=== PATIENT | female | born 1935 | race American Indian/Alaskan Native ===

== ENCOUNTER 2018-10-29 15:05 | Inpatient (IN) | payer MEDICARE ==
[2018-10-29 16:17] LABS: Basophils # (Auto) 0.1 K/mm3 (0.0-0.1); Basophils % (Auto) 1.1 % (0.0-1.8); Eosinophils # (Auto) 0.3 K/mm3 (0.0-0.4); Eosinophils % (Auto) 3.8 % (0.0-4.3); Hematocrit 40.2 % (30.3-42.9); Lymphocytes # (Auto) 0.6 K/mm3 (1.2-5.4); Lymphocytes % (Auto) 7.8 % (13.4-35.0); Mean Corpuscular HGB Conc 32 % (30-34); Mean Corpuscular Volume 92 fl (79-97); Monocytes # (Auto) 0.7 K/mm3 (0.0-0.8); Monocytes % (Auto) 9.4 % (0.0-7.3); Platelet Count 317 K/mm3 (140-440); Red Blood Count 4.36 M/mm3 (3.65-5.03); Red Cell Distribution Width 17.8 % (13.2-15.2)
[2018-10-29 16:35] LABS: Albumin 3.9 g/dL (3.9-5); Calcium 8.8 mg/dL (8.4-10.2)
[2018-10-29 16:35] LABS: Bacteria,Urine 1+ /HPF (Negative); Bilirubin,Urine NEG (Negative); Blood,Urine NEG (Negative); Color,Urine Yellow (Yellow); Mucus,Urine FEW /HPF; Protein,Urine <15 mg/dL mg/dL (Negative); Urobilinogen,Urine < 2.0 mg/dL (<2.0)
[2018-10-29] MEDS ORDERED: SUBLIMAZE IV ONE ×2 (16:41→20:57)
[2018-10-29] MEDS ORDERED: ZOFRAN IV ONE (16:41)
--- NOTE | 2018-10-29 16:46 | Emergency Department Report ---
HPI - General Chief Complaint: Weakness Time Seen by Provider: 10/29/18 16:30 - HPI HPI: Room 8 The patient is an 83-year-old female presenting with chief complaint of right flank pain. Patient states she's had intermittent pain in her right flank for t he past 2 weeks. Patient states the pain begins as dull and then becomes sharp. Patient admits to occasional nausea and vomiting. Patient states she has minimal if any lower abdominal pain. Patient denies dysuria or hematuria. Patient denies history of fever. Family states the patient went to [facility] emergency Department 2 days ago and was discharged home. Today at [facility] the patient was found to be hypotensive and confused and was subsequently sent to the ED. Location: Right flank Duration: 2 weeks Quality: Dull/sharp Severity: 03/14 Modifying factors: [see above] Context: [see above] Mode of transportation: [not driving] ED Past Medical Hx - Past Medical History Previous Medical History?: Yes Hx Hypertension: Yes Hx Congestive Heart Failure: Yes Hx COPD: Yes - Surgical History Past Surgical History?: Yes Hx Open Heart Surgery: Yes Hx Pacemaker: Yes Additional Surgical History: heart valve replacement, CABG - Family History Family history: no significant - Social History Smoking Status: Former Smoker Substance Use Type: None - Medications Home Medications: Home Medications Medication Instructions Recorded Confirmed Last Taken Type ALBUTEROL Inhaler (OR & NICU) 2 puff IH QID PRN 02/26/16 02/26/16 Unknown History [Proair] ALBUTEROL NEB's [Proventil 0.083% 2.5 mg IH TID PRN #1 box 02/26/16 Unknown Rx NEBS] Albuterol Sulfate [Ventolin HFA] 2 puff IH Q4H PRN #1 hfa.aer.ad 02/26/16 Unknown Rx Allopurinol [Zyloprim] 100 mg PO QDAY 02/26/16 02/26/16 Unknown History Amiodarone HCl [Amiodarone 100 MG 100 mg PO BID 02/26/16 02/26/16 Unknown History TAB] Atorvastatin [Lipitor Tab] 40 mg PO DAILY 02/26/16 02/26/16 Unknown History Azithromycin [Zithromax Z-FAN] 1 dose PO DAILY 5 Days tab 02/26/16 Unknown Rx Benzonatate [Tessalon Perles] 100 mg PO Q8HR PRN #30 capsule 02/26/16 Unknown Rx Bisoprolol Fumarate [Zebeta] 10 mg PO DAILY 02/26/16 02/26/16 Unknown History Furosemide [Lasix TAB] 40 mg PO QDAY 02/26/16 02/26/16 Unknown History Potassium Chloride [K-Tab ER] 20 meq PO BID 02/26/16 02/26/16 Unknown History Prednisone [predniSONE 10 mg 10 mg PO .TAPER #1 tab.ds.pk 02/26/16 Unknown Rx (6-Day Pack, 21 Tabs)] Spironolactone [Aldactone] 25 mg PO QDAY 02/26/16 02/26/16 Unknown History Warfarin [Coumadin] 5 mg PO QDAY 02/26/16 02/26/16 Unknown History cloNIDine [Catapres] 0.1 mg PO DAILY 02/26/16 02/26/16 Unknown History hydrALAZINE [Apresoline] 25 mg PO TID 02/26/16 02/26/16 Unknown History hydroCHLOROthiazide [HCTZ] 25 mg PO QDAY 02/26/16 02/26/16 Unknown History ED Review of Systems ROS: Stated complaint: WEAKNESS,HYPERTENSION Other details as noted in HPI Constitutional: denies: fever Eyes: denies: eye pain ENT: denies: throat pain Respiratory: no symptoms reported Cardiovascular: denies: chest pain Endocrine: no symptoms reported Gastrointestinal: abdominal pain, nausea, vomiting, diarrhea Genitourinary: denies: dysuria, hematuria Musculoskeletal: back pain Neurological: denies: headache Physical Exam - Physical Exam Vital Signs: Vital Signs 10/29/18 10/29/18 10/29/18 15:16 15:39 15:45 Temperature 97.8 F Pulse Rate 80 Respiratory 20 18 Rate Blood Pressure 95/50 112/51 O2 Sat by Pulse 96 96 94 Oximetry 10/29/18 16:00 Temperature Pulse Rate 73 Respiratory 17 Rate Blood Pressure 115/57 O2 Sat by Pulse 96 Oximetry Physical Exam: GENERAL: The patient is well-developed well-nourished female lying on stretcher appearing to be in mild discomfort. [] HEENT: Normocephalic. Atraumatic. Extraocular motions are intact. Patient has moist mucous membranes. NECK: Supple. Trachea midline CHEST/LUNGS: Clear to auscultation. There is no respiratory distress noted. HEART/CARDIOVASCULAR: Regular. There is no tachycardia. There is no gallop rub or murmur. ABDOMEN: Abdomen is soft, with discomfort to palpation in the right upper quadrant. Trace discomfort to palpation of the left lower quadrant. No rebound or guarding. Patient has normal bowel sounds. There is no abdominal distention. SKIN: There is no rash. There is no edema. There is no diaphoresis. NEURO: The patient is awake, alert, and oriented. The patient is cooperative. The patient has normal speech MUSCULOSKELETAL: There is right CVA tenderness. There is no evidence of acute injury. ED Course Vital Signs 10/29/18 10/29/18 10/29/18 15:16 15:39 15:45 Temperature 97.8 F Pulse Rate 80 Respiratory 20 18 Rate Blood Pressure 95/50 112/51 O2 Sat by Pulse 96 96 94 Oximetry 10/29/18 16:00 Temperature Pulse Rate 73 Respiratory 17 Rate Blood Pressure 115/57 O2 Sat by Pulse 96 Oximetry ED Medical Decision Making - Lab Data Result diagrams: 10/29/18 16:05 10/29/18 16:05 Laboratory Tests 10/29/18 10/29/18 10/29/18 16:05 16:05 16:05 WBC 7.4 RBC 4.36 Hgb 13.0 Hct 40.2 MCV 92 MCH 30 MCHC 32 RDW 17.8 H Plt Count 317 Lymph % (Auto) 7.8 L Greer % (Auto) 9.4 H Eos % (Auto) 3.8 Baso % (Auto) 1.1 Lymph # 0.6 L Greer # 0.7 Eos # 0.3 Baso # 0.1 Seg Neutrophils % 77.9 H Seg Neutrophils # 5.8 Sodium 141 Potassium 4.4 Chloride 100.5 Carbon Dioxide 30 Anion Gap 15 BUN 42 H Creatinine 1.8 H Estimated GFR 32 BUN/Creatinine Ratio 23 Glucose 70 Calcium 8.8 Total Bilirubin 0.50 AST 23 ALT 10 Alkaline Phosphatase 127 Total Creatine Kinase CK-MB (CK-2) CK-MB (CK-2) Rel Index Troponin T 0.037 H Total Protein 6.5 Albumin 3.9 Albumin/Globulin Ratio 1.5 Triglycerides 119 Cholesterol 136 LDL Cholesterol Direct 91 HDL Cholesterol 42 Cholesterol/HDL Ratio 3.23 Urine Color Urine Turbidity Urine pH Ur Specific [place] Urine Protein Urine Glucose (UA) Urine Ketones Urine Blood Urine Nitrite Urine Bilirubin Urine Urobilinogen Ur Leukocyte Esterase Urine WBC (Auto) Urine RBC (Auto) U Epithel Cells (Auto) Urine Bacteria (Auto) Urine Mucus 10/29/18 10/29/18 16:17 16:28 WBC RBC Hgb Hct MCV MCH MCHC RDW Plt Count Lymph % (Auto) Greer % (Auto) Eos % (Auto) Baso % (Auto) Lymph # Greer # Eos # Baso # Seg Neutrophils % Seg Neutrophils # Sodium Potassium Chloride Carbon Dioxide Anion Gap BUN Creatinine Estimated GFR BUN/Creatinine Ratio Glucose Calcium Total Bilirubin AST ALT Alkaline Phosphatase Total Creatine Kinase 41 CK-MB (CK-2) 2.5 CK-MB (CK-2) Rel Index 6.0 H Troponin T Total Protein Albumin Albumin/Globulin Ratio Triglycerides Cholesterol LDL Cholesterol Direct HDL Cholesterol Cholesterol/HDL Ratio Urine Color Yellow Urine Turbidity Clear Urine pH 5.0 Ur Specific [place] 1.008 Urine Protein <15 mg/dl Urine Glucose (UA) Neg Urine Ketones Neg Urine Blood Neg Urine Nitrite Neg Urine Bilirubin Neg Urine Urobilinogen < 2.0 Ur Leukocyte Esterase Mod Urine WBC (Auto) 12.0 H Urine RBC (Auto) 4.0 U Epithel Cells (Auto) 1.0 Urine Bacteria (Auto) 1+ Urine Mucus Few - EKG Data -: EKG Interpreted by Me Rate: normal (70 bpm) - EKG Data When compared to previous EKG there are: previous EKG unavailable Interpretation: other (ventricularly paced rhythm at 70 bpm) - Radiology Data Radiology results: report reviewed (CT abdomen and pelvis, chest x-ray, right upper quadrant ultrasound), image reviewed (CT abdomen and pelvis, chest x-ray, right upper quadrant ultrasound) interpreted by me: Chest [id number] sized right pleural effusion [address] [address] Ultrasound Report Signed Patient: KENTON CEDILLO MR#: [id number] : 1935 Acct:[id number] Age/Sex: 83 / F ADM Date: 10/29/18 Loc: ED Attending Dr: Ordering Physician: ALY LÓPEZ MD Date of Service: 10/29/18 Procedure(s): US abdomen limited Accession Number(s): [id number] cc: ALY LÓPEZ MD PROCEDURE: US ABDOMEN LIMITED TECHNIQUE: Real-time sonography was performed of the gallbladder with image documentation. HISTORY: right-sided abdominal pain COMPARISONS: None . FINDINGS: There are stones in the gallbladder lumen. Gallbladder wall thickness is 2 mm common bile duct measures 2 mm. Minimal ascites in the upper abdomen is noted. The portion of the liver and right kidney imaged are normal. There is a small right renal cortical cyst measuring 15 mm. No hydronephrosis . IMPRESSION: Cholelithiasis. The common bile duct is normal measuring 2 mm. Minimal ascites around the liver . This document is electronically signed by Valerie Jimenez DO., October 29 2018 11:14:13 PM ET Transcribed By: [facility] Dictated By: VALERIE JIMENEZ MD Electronically Authenticated By: VALERIE JIMENEZ MD Signed Date/Time: 10/29/182315 DD/ 43 TD/TT: 10/29/182304 [facility] [address] [place] [address] XRay Report Signed Patient: KENTON CEDILLO MR#: [id number] : 1935 Acct:[id number] Age/Sex: 83 / F ADM Date: 10/29/18 Loc: ED Attending Dr: Ordering Physician: ALY LÓPEZ MD Date of Service: 10/29/18 Procedure(s): XR chest 1V ap Accession Number(s): [id number] cc: ALY LÓPEZ MD Fluoro Time In Minutes: PROCEDURE: XR CHEST 1V AP TECHNIQUE: Chest radiograph single view. HISTORY: right pleural effusion COMPARISONS: None . FINDINGS: Moderate degree cardiomegaly is noted. A cardiac device is noted on the left side. There is moderate degree right pleural effusion. An inhomogeneous density is noted in the right lower lung. Left lung and left pleural spaces are clear. IMPRESSION: Cardiomegaly Moderate degree right pleural effusion Inhomogeneous density left lower lung may represent atelectatic versus infiltrative changes. This document is electronically signed by Lanny Lancaster MD., October 29 2018 10:07:39 PM ET Transcribed By: [facility] Dictated By: LANNY LANCASTER Electronically Authenticated By: LANNY LANCASTER Signed Date/Time: 10/29/182208 DD/ 29 TD/TT: 10/29/180 [facility] [address] [place] [address] Cat Scan Report Signed Patient: KENTON CEDILLO MR#: [id number] : 1935 Acct:[id number] Age/Sex: 83 / F ADM Date: 10/29/18 Loc: ED Attending Dr: Ordering Physician: ALY LÓPEZ MD Date of Service: 10/29/18 Procedure(s): CT abdomen pelvis wo con Accession Number(s): [id number] cc: ALY LÓPEZ MD PROCEDURE: CT ABDOMEN PELVIS WO CON HISTORY: right flank pain FINDINGS: Unenhanced CT of the abdomen and pelvis was performed and data was reformatted into the sagittal and coronal planes. There is cardiomegaly and pacing device. There is a moderately large right pleural effusion. ABDOMEN: No suspect focal hepatic lesion is seen. There is a small amount of perihepatic ascites. There is a calcified splenic granuloma. The adrenal glands and pancreas are within normal limits. There is a gallstone. The gallbladder is mildly distended and there appears to be trace stranding around the gallbladder. This could be ascites, but cholecystitis is not excluded. Consider ultrasound or HIDA patient has right upper quadrant pain. There is no renal or ureteral calculus. There are bilateral renal cysts. There is mild dilation of the infrarenal abdominal aorta 2.2 cm. There is no small or large bowel obstruction. Pelvis: There is a normal appendix. There is no evidence of diverticulitis. There has been a hysterectomy. There is a small amount of pelvic ascites. The urinary bladder is within normal limits. There are vacuum degenerative changes at L2-L3 L3-L4 and L5-S1. IMPRESSION: Cardiomegaly Right pleural effusion ABDOMEN: Gallstone. There is trace stranding around the gallbladder which could be due to the presence of ascites but cholecystitis is not excluded. Small amount of perihepatic ascites Pelvis: Normal appendix Hysterectomy Small amount of pelvic ascites This document is electronically signed by Denis Castañeda MD., October 29 2018 07:38:25 PM ET Transcribed By: [facility] Dictated By: DENIS CASTAÑEDA MD Electronically Authenticated By: DENIS CASTAÑEDA MD Signed Date/Time: 10/29/181939 DD/ 02 TD/TT: 10/29/181903 - Differential Diagnosis renal colic, pyelonephritis, retroperitoneal hematoma Critical care attestation.: If time is entered above; I have spent that time in minutes in the direct care of this critically ill patient, excluding procedure time. ED Disposition Clinical Impression: Acute right flank pain, UTI (urinary tract infection), Pleural effusion, right, Renal insufficiency, Elevated troponin Disposition: OP ADMIT IP TO THIS HOSP Is pt being admited?: Yes Does the pt Need Aspirin: No Condition: Fair Referrals: SUZAN JORDAN MD [Primary Care Provider] - 3-5 Days Time of Disposition: 23:50 (hospitalist paged (Dr. Amanda Gonzalez))
[2018-10-29 16:57] LABS: Creatine Kinase MB 2.5 ng/mL (0.0-4.0)
[2018-10-29 16:58] LABS: Chol/HDL Ratio 3.23 %
[2018-10-29] MEDS ORDERED: BACTRIM DS PO ONE (17:48)
--- NOTE | 2018-10-29 19:40 | Cat Scan Report ---
PROCEDURE: CT ABDOMEN PELVIS WO CON HISTORY: right flank pain FINDINGS: Unenhanced CT of the abdomen and pelvis was performed and data was reformatted into the sa gittal and coronal planes. There is cardiomegaly and pacing device. There is a moderately large right pleural effusion. ABDOMEN: No suspect focal hepatic lesion is seen. There is a small amount of perihepatic ascites. There is a calcified splenic granuloma. The adrenal glands and pancreas are within normal limits. There is a gallstone. The gallbladder is mildly distended and there appears to be trace stranding rickey und the gallbladder. This could be ascites, but cholecystitis is not excluded. Consider ultrasound or HIDA patient has right upper quadrant pain. There is no renal or ureteral calculus. There are bilateral renal cysts. There is mild dilation of the infrarenal abdominal aorta 2.2 cm. There is no small or large bowel obstruction. Pelvis: There is a normal appendix. There is no evidence of diverticulitis. There has been a hysterectomy. There is a small amount of pelvic ascites. The urinary bladder is with in normal limits. There are vacuum degenerative changes at L2-L3 L3-L4 and L5-S1. IMPRESSION: Cardiomegaly Right pleural effusion ABDOMEN: Gallstone. There is trace stranding around the gallbladder which could be due to the presenc e of ascites but cholecystitis is not excluded. Small amount of perihepatic ascites Pelvis: Normal appendix Hysterectomy Small amount of pelvic ascites This document is electronically signed by Denis Castañeda MD., October 29 2018 07:38:25 PM ET
[2018-10-29] MEDS ORDERED: BACTRIM DS ONE (20:35)
--- NOTE | 2018-10-29 22:09 | XRay Report ---
PROCEDURE: XR CHEST 1V AP TECHNIQUE: Chest radiograph single view. HISTORY: right pleural effusion COMPARISONS: None . FINDINGS: Moderate degree cardiomegaly is noted. A cardiac device is noted on the left side. There is moderate degree right pleural effusion. An inhomogeneous density is noted in the right lower lung. Left lung a nd left pleural spaces are clear. IMPRESSION: Cardiomegaly Moderate degree right pleural effusion Inhomogeneous density left lower lung may represent atelectatic versus infiltrative changes. This document is electronically signed by Ariel Lancaster MD., October 29 2018 10:07:39 PM ET
--- NOTE | 2018-10-29 23:16 | Ultrasound Report ---
PROCEDURE: US ABDOMEN LIMITED TECHNIQUE: Real-time sonography was performed of the gallbladder with image documentation. HISTORY: right-sided abdominal pain COMPARISONS: None . FINDINGS: There are stones in the gallbladder lumen. Gallbladder wall thickness is 2 mm common bile duct measur es 2 mm. Minimal ascites in the upper abdomen is noted. The portion of the liver and right kidney juaquin ged are normal. There is a small right renal cortical cyst measuring 15 mm. No hydronephrosis . IMPRESSION: Cholelithiasis. The common bile duct is normal measuring 2 mm. Minimal ascites around th e liver . This document is electronically signed by Valerie Jimenez DO., October 29 2018 11:14:13 PM ET
--- NOTE | 2018-10-29 23:57 | History and Physical Report ---
History of Present Illness Date of examination: 10/29/18 History of present illness: 83-year-old woman with CHF, chronic right pleural effusion, hypertension, COPD, gout, emergency room complaining of right flank pain 3 weeks, described as sharp, intermittent less than 1 minute, intensity level X, cannot identify exace rbating factor, no nausea vomiting. Patient on chronic Lasix, no dysuria, + urinary frequency. Status post thoracentesis one month ago Review of systems Constitutional: no weight loss, chills, fever Ears, eyes, nose, mouth and throat: no nasal congestion, no nasal discharge, no sinus pressure, no vision change, no red eye. Neck: No neck pain or rigidity. Cardiovascular: no palpitations, chest pain Respiratory: no cough, shortness of breath Gastrointestinal: no hematochezia, abdominal pain Genitourinary : no frequency , no hematuria Musculoskeletal: no joint swelling or muscle ache Integumentary: no rash, no pruritis Neurological: no parathesias, no focal weakness Endocrine: no cold or heat intolerance, no polyuria or polydipsia Hematologic/Lymphatic: no easy bruising, no easy bleeding, no gland swelling Allergic/Immunologic: no urticaria, no angioedema. PAST MEDICAL HISTORY:CHF, chronic right pleural effusion, hypertension, COPD, gout PAST SURGICAL HISTORY: CABG, pacemaker, valve replacement SOCIAL HISTORY: Denies alcohol, drugs, tobacco FAMILY HISTORY: Hypertension Medications and Allergies Allergies Allergy/AdvReac Type Severity Reaction Status Date / Time No Known Allergies Allergy Verified 02/26/16 11:54 Home Medications Medication Instructions Recorded Confirmed Last Taken Type ALBUTEROL Inhaler (OR & NICU) 2 puff IH QID PRN 02/26/16 10/30/18 Unknown History [ProAir HFA Inhaler] ALBUTEROL NEB's [Proventil 0.083% 2.5 mg IH TID PRN #1 box 02/26/16 10/30/18 Unknown Rx NEBS] Albuterol Sulfate [Ventolin HFA] 2 puff IH Q4H PRN #1 hfa.aer.ad 02/26/16 10/30/18 Unknown Rx Allopurinol [Zyloprim] 100 mg PO QDAY 02/26/16 10/30/18 Unknown History Amiodarone HCl [Amiodarone 100 MG 100 mg PO BID 02/26/16 10/30/18 Unknown History TAB] Atorvastatin [Lipitor] 40 mg PO DAILY 02/26/16 10/30/18 Unknown History Benzonatate [Tessalon Perles] 100 mg PO Q8HR PRN #30 capsule 02/26/16 10/30/18 Unknown Rx Bisoprolol Fumarate [Zebeta] 10 mg PO DAILY 02/26/16 10/30/18 Unknown History Furosemide [Lasix TAB] 40 mg PO QDAY 02/26/16 10/30/18 Unknown History Potassium Chloride [K-Tab ER] 20 meq PO BID 02/26/16 10/30/18 Unknown History Prednisone [predniSONE 10 mg 10 mg PO .TAPER #1 tab.ds.pk 02/26/16 10/30/18 Unknown Rx (6-Day Pack, 21 Tabs)] Spironolactone [Aldactone] 25 mg PO QDAY 02/26/16 10/30/18 Unknown History Warfarin [Coumadin] 5 mg PO QDAY 02/26/16 10/30/18 Unknown History cloNIDine [Catapres] 0.1 mg PO DAILY 02/26/16 10/30/18 Unknown History hydrALAZINE [Apresoline TAB] 25 mg PO TID 02/26/16 10/30/18 Unknown History Cephalexin [Keflex] 250 mg PO TID #12 capsule 10/31/18 Unknown Rx oxyCODONE /ACETAMINOPHEN [Percocet 1 tab PO Q6H PRN #14 tablet 10/31/18 Unknown Rx 5/325 mg] Exam - Physical Exam Narrative exam: General Apperance: The patient lying in bed, breathing comfortable HEENT: Normocephalic, atraumatic. Pupils equally round and reactive to light, EOMI, no sclericterus or JVD or thyromegaly or nodule. , no carotid bruit, mucous membranes moist, no exudate or erythema Heart: S1-S2, regular is rhythm Lungs: Decreased breath sound at bases bilaterally, breathing comfortable Abdomen: Positive bowel sounds, soft, nontender, nondistended, no organomegaly Extremities: No edema cyanosis clubbing Skin: no rash, nodule, warm and dry Neuro: cranial nerves 2-12 intact, speech is fluent, motor/sensory intact - Constitutional Vitals: Temp Pulse Resp BP Pulse Ox 98.8 F 71 16 90/43 93 10/29/18 16:42 10/29/18 23:00 10/29/18 23:00 10/29/18 23:00 10/29/18 22:00 Results - Labs CBC & Chem 7: 10/30/18 05:15 10/31/18 07:53 Labs: Abnormal lab results 10/29/18 10/29/18 10/29/18 Range/Units 16:05 16:05 16:05 RDW 17.8 H (13.2-15.2) % Lymph % (Auto) 7.8 L (13.4-35.0) % Letcher % (Auto) 9.4 H (0.0-7.3) % Lymph # 0.6 L (1.2-5.4) K/mm3 Seg Neutrophils % 77.9 H (40.0-70.0) % BUN 42 H (7-17) mg/dL Creatinine 1.8 H (0.7-1.2) mg/dL CK-MB (CK-2) Rel Index (0-4) Troponin T 0.037 H (0.00-0.029) ng/mL Urine WBC (Auto) (0.0-6.0) /HPF 10/29/18 10/29/18 Range/Units 16:17 16:28 RDW (13.2-15.2) % Lymph % (Auto) (13.4-35.0) % [place] % (Auto) (0.0-7.3) % Lymph # (1.2-5.4) K/mm3 Seg Neutrophils % (40.0-70.0) % BUN (7-17) mg/dL Creatinine (0.7-1.2) mg/dL CK-MB (CK-2) Rel Index 6.0 H (0-4) Troponin T (0.00-0.029) ng/mL Urine WBC (Auto) 12.0 H (0.0-6.0) /HPF - Imaging and Cardiology CT scan - abdomen: report reviewed CT scan - pelvis: report reviewed US - abdomen: report reviewed Assessment and Plan Assessment Flank pain most likely due to urinary tract infection Abnormal cardiac enzymes, asymptomatic right pleural effusion, recurrent Cholelithiasis hypertension COPD gout Kidney disease most likely chronic Plan Admit to medicine Start IV Rocephin, follow cultures check cardiac enzymes, echo Continue appropriate outpatient medications DVT prophylaxis
[2018-10-30] MEDS ORDERED: SODIUM CHLORIDE FLUSH SYRINGE 10 ML IV PRN (00:35)
[2018-10-30] MEDS ORDERED: ZOFRAN IV PRN (00:35)
[2018-10-30] MEDS ORDERED: TYLENOL PO PRN (00:35)
[2018-10-30] MEDS: PERCOCET 5/325 PO PRN ×3 (00:48→13:24)
[2018-10-30] MEDS: ROCEPHIN/NS 1 GM/50 ML 1 GM/50 ML BAG IV SCH ×2 (00:50→11:11)
[2018-10-30 06:24] LABS: Basophils # (Auto) 0.1 K/mm3 (0.0-0.1); Basophils % (Auto) 0.9 % (0.0-1.8); Eosinophils # (Auto) 0.2 K/mm3 (0.0-0.4); Eosinophils % (Auto) 3.4 % (0.0-4.3); Hematocrit 43.4 % (30.3-42.9); Hemoglobin 14.2 gm/dl (10.1-14.3); Lymphocytes # (Auto) 0.8 K/mm3 (1.2-5.4); Lymphocytes % (Auto) 11.2 % (13.4-35.0); Mean Corpuscular HGB Conc 33 % (30-34); Mean Corpuscular Volume 92 fl (79-97); Monocytes # (Auto) 0.7 K/mm3 (0.0-0.8); Monocytes % (Auto) 9.6 % (0.0-7.3); Platelet Count 324 K/mm3 (140-440); Red Cell Distribution Width 18.1 % (13.2-15.2)
--- NOTE | 2018-10-30 07:42 | Progress Note ---
Assessment and Plan Assessment and plan: 83-year-old female was admitted to the floor after she was presented with right flank pain Workup in the emergency department showed UTI, cholelithiasis Right ellie pain - Pain control, patient is requiring IV morphine, patient's now well controlled with by mouth Percocet, will discharge once pain is controlled with his by mouth medications. - Causes could be cholelithiasis versus right pleural effusion, UTI UTI, with no evidence of sepsis - Patient started on IV Rocephin - We'll follow urine culture Cholelithiasis, was no evidence of cholecystitis - Manage conservatively first, given her advance age - If the pain didn't get better we'll consult surgery Right pleural effusion, chronic - We'll monitor - Patient didn't have shortness of breath DVT prophylaxis; on Lovenox Disposition - Patient is severe and needs IV morphine, will discharge the patient once pain is controlled with by mouth medications. History Interval history: Patient was seen and evaluated this morning, patient's complaining of right flank pain. Hospitalist Physical - Physical exam Narrative exam: Not in cardiopulmonary distress. The patient appeared well nourished and normally developed. Vital signs as documented. Head exam is unremarkable. No scleral icterus . Neck is without jugular venous distension, thyromegaly, or carotid bruits. Lungs are clear to auscultation. Cardiac exam reveals regular rate and Rhythm. First and second heart sounds normal. No murmurs, rubs or gallops. Abdominal exam reveals normal bowel sounds, no masses, no organomegaly and no aortic enlargement. Extremities are nonedematous and both femoral and pedal pulses are normal. FUNNEL SETTER: Alert and oriented 3. No focal weakness. - Constitutional Vitals: Temp Pulse Resp BP Pulse Ox 98.7 F 74 20 129/70 96 10/30/18 04:00 10/30/18 04:00 10/30/18 04:00 10/30/18 04:00 10/30/18 04:00 Results - Labs CBC & Chem 7: 10/30/18 05:15 10/30/18 06:40 Labs: Laboratory Last Values WBC 6.8 K/mm3 (4.5-11.0) 10/30/18 05:15 RBC 4.70 M/mm3 (3.65-5.03) 10/30/18 05:15 Hgb 14.2 gm/dl (10.1-14.3) 10/30/18 05:15 Hct 43.4 % (30.3-42.9) H 10/30/18 05:15 MCV 92 fl (79-97) 10/30/18 05:15 MCH 30 pg (28-32) 10/30/18 05:15 MCHC 33 % (30-34) 10/30/18 05:15 RDW 18.1 % (13.2-15.2) H 10/30/18 05:15 Plt Count 324 K/mm3 (140-440) 10/30/18 05:15 Lymph % (Auto) 11.2 % (13.4-35.0) L 10/30/18 05:15 [place] % (Auto) 9.6 % (0.0-7.3) H 10/30/18 05:15 Eos % (Auto) 3.4 % (0.0-4.3) 10/30/18 05:15 Baso % (Auto) 0.9 % (0.0-1.8) 10/30/18 05:15 Lymph # 0.8 K/mm3 (1.2-5.4) L 10/30/18 05:15 [place] # 0.7 K/mm3 (0.0-0.8) 10/30/18 05:15 Eos # 0.2 K/mm3 (0.0-0.4) 10/30/18 05:15 Baso # 0.1 K/mm3 (0.0-0.1) 10/30/18 05:15 Seg Neutrophils % 74.9 % (40.0-70.0) H 10/30/18 05:15 Seg Neutrophils # 5.1 K/mm3 (1.8-7.7) 10/30/18 05:15 Sodium 141 mmol/L (137-145) 10/29/18 16:05 Potassium 4.4 mmol/L (3.6-5.0) 10/29/18 16:05 Chloride 100.5 mmol/L (98-107) 10/29/18 16:05 Carbon Dioxide 30 mmol/L (22-30) 10/29/18 16:05 Anion Gap 15 mmol/L 10/29/18 16:05 BUN 42 mg/dL (7-17) H 10/29/18 16:05 Creatinine 1.8 mg/dL (0.7-1.2) H 10/29/18 16:05 Estimated GFR 32 ml/min 10/29/18 16:05 BUN/Creatinine Ratio 23 % 10/29/18 16:05 Glucose 70 mg/dL (65-100) 10/29/18 16:05 Calcium 8.8 mg/dL (8.4-10.2) 10/29/18 16:05 Total Bilirubin 0.50 mg/dL (0.1-1.2) 10/29/18 16:05 AST 23 units/L (5-40) 10/29/18 16:05 ALT 10 units/L (7-56) 10/29/18 16:05 Alkaline Phosphatase 127 units/L (35-129) 10/29/18 16:05 Total Creatine Kinase 41 units/L (30-135) 10/29/18 16:28 CK-MB (CK-2) 2.5 ng/mL (0.0-4.0) 10/29/18 16:28 CK-MB (CK-2) Rel Index 6.0 (0-4) H 10/29/18 16:28 Troponin T 0.037 ng/mL (0.00-0.029) H 10/29/18 16:05 Total Protein 6.5 g/dL (6.3-8.2) 10/29/18 16:05 Albumin 3.9 g/dL (3.9-5) 10/29/18 16:05 Albumin/Globulin Ratio 1.5 % 10/29/18 16:05 Triglycerides 119 mg/dL (2-149) 10/29/18 16:05 Cholesterol 136 mg/dL (50-199) 10/29/18 16:05 LDL Cholesterol Direct 91 mg/dL (50-130) 10/29/18 16:05 HDL Cholesterol 42 mg/dL (40-59) 10/29/18 16:05 Cholesterol/HDL Ratio 3.23 % 10/29/18 16:05 Urine Color Yellow (Yellow) 10/29/18 16:17 Urine Turbidity Clear (Clear) 10/29/18 16:17 Urine pH 5.0 (5.0-7.0) 10/29/18 16:17 Ur Specific [place] 1.008 (1.003-1.030) 10/29/18 16:17 Urine Protein <15 mg/dl mg/dL (Negative) 10/29/18 16:17 Urine Glucose (UA) Neg mg/dL (Negative) 10/29/18 16:17 Urine Ketones Neg mg/dL (Negative) 10/29/18 16:17 Urine Blood Neg (Negative) 10/29/18 16:17 Urine Nitrite Neg (Negative) 10/29/18 16:17 Urine Bilirubin Neg (Negative) 10/29/18 16:17 Urine Urobilinogen < 2.0 mg/dL (<2.0) 10/29/18 16:17 Ur Leukocyte Esterase Mod (Negative) 10/29/18 16:17 Urine WBC (Auto) 12.0 /HPF (0.0-6.0) H 10/29/18 16:17 Urine RBC (Auto) 4.0 /HPF (0.0-6.0) 10/29/18 16:17 U Epithel Cells (Auto) 1.0 /HPF (0-13.0) 10/29/18 16:17 Urine Bacteria (Auto) 1+ /HPF (Negative) 10/29/18 16:17 Urine Mucus Few /HPF 10/29/18 16:17 Active Medications - Current Medications Current Medications: Generic Name Dose Route Start Last Admin Trade Name Freq PRN Reason Stop Dose Admin Acetaminophen 650 mg 10/30/18 00:35 Tylenol PO Q4H PRN Pain MILD(1-3)/Fever >100.5/CLAY Enoxaparin Sodium 30 mg 10/30/18 10:00 Lovenox SUB-Q QDAY [facility] Ceftriaxone Sodium 1 gm in 50 mls @ 100 mls/hr 10/30/18 00:35 10/30/18 00:50 Rocephin/Ns 1 Gm/50 Ml IV 100 mls/hr Q24HR [facility] Administration Protocol Ondansetron HCl 4 mg 10/30/18 00:35 Zofran IV Q4H PRN Nausea And Vomiting Oxycodone/Acetaminophen 1 tab 10/30/18 00:35 10/30/18 00:48 Percocet 5/325 PO 1 tab Q6H PRN Administration Pain, Moderate (4-6) Sodium Chloride 10 ml 10/30/18 10:00 Sodium Chloride Flush Syringe 10 Ml IV BID RANDOLPH Sodium Chloride 10 ml 10/30/18 00:35 Sodium Chloride Flush Syringe 10 Ml IV PRN PRN LINE FLUSH
[2018-10-30 08:27] LABS: Calcium 8.9 mg/dL (8.4-10.2)
[2018-10-30 08:29] LABS: Creatine Kinase MB 2.6 ng/mL (0.0-4.0)
[2018-10-30] MEDS: LOVENOX SUB-Q SCH (11:18)
[2018-10-30] MEDS ORDERED: MORPHINE IM ONE (11:34)
[2018-10-30] MEDS ORDERED: MORPHINE IV ONE (11:49)
[2018-10-30] MEDS ORDERED: MORPHINE IV STA (12:05)
[2018-10-30] MEDS: SODIUM CHLORIDE FLUSH SYRINGE 10 ML IV SCH ×2 (12:19→22:21)
[2018-10-30 14:42] LABS: Creatine Kinase MB 1.5 ng/mL (0.0-4.0)
--- NOTE | 2018-10-30 17:06 | Consultation ---
History of Present Illness Consult date: 10/30/18 Chief complaint: RIGHT FLANK PAIN - History of present illness History of present illness: 83 yo F with hx of CHF, pacemaker presented to ER with c/o 3 weeks of weakness, dizziness, and right flank pain. She states the pain is shooting in nature, has slowly gotten worse, and is intermittent. It is not associated with food. There is no abdominal pain. No n/v, f/c, cp, sob. She is often constipated. She states she had drainage of a right sided pleural effusion in the past and she felt similar pains like this prior to the drainage. Imaging studies showed gallstones and surgery is consulted to evaluate. Past History Past Medical History: atrial fib, heart failure, other (asthma) Past Surgical History: hysterectomy, Other (pacemaker, right thoracentesis) Social history: no significant social history Family history: no significant family history Medications and Allergies Allergies Allergy/AdvReac Type Severity Reaction Status Date / Time No Known Allergies Allergy Verified 02/26/16 11:54 Home Medications Medication Instructions Recorded Confirmed Last Taken Type ALBUTEROL Inhaler (OR & NICU) 2 puff IH QID PRN 02/26/16 10/30/18 Unknown History [Proair] ALBUTEROL NEB's [Proventil 0.083% 2.5 mg IH TID PRN #1 box 02/26/16 10/30/18 Unknown Rx NEBS] Albuterol Sulfate [Ventolin HFA] 2 puff IH Q4H PRN #1 hfa.aer.ad 02/26/16 10/30/18 Unknown Rx Allopurinol [Zyloprim] 100 mg PO QDAY 02/26/16 10/30/18 Unknown History Amiodarone HCl [Amiodarone 100 MG 100 mg PO BID 02/26/16 10/30/18 Unknown History TAB] Atorvastatin [Lipitor Tab] 40 mg PO DAILY 02/26/16 10/30/18 Unknown History Azithromycin [Zithromax Z-FAN] 1 dose PO DAILY 5 Days tab 02/26/16 10/30/18 Unknown Rx Benzonatate [Tessalon Perles] 100 mg PO Q8HR PRN #30 capsule 02/26/16 10/30/18 Unknown Rx Bisoprolol Fumarate [Zebeta] 10 mg PO DAILY 02/26/16 10/30/18 Unknown History Furosemide [Lasix TAB] 40 mg PO QDAY 02/26/16 10/30/18 Unknown History Potassium Chloride [K-Tab ER] 20 meq PO BID 02/26/16 10/30/18 Unknown History Prednisone [predniSONE 10 mg 10 mg PO .TAPER #1 tab.ds.pk 02/26/16 10/30/18 Unknown Rx (6-Day Pack, 21 Tabs)] Spironolactone [Aldactone] 25 mg PO QDAY 02/26/16 10/30/18 Unknown History Warfarin [Coumadin] 5 mg PO QDAY 02/26/16 10/30/18 Unknown History cloNIDine [Catapres] 0.1 mg PO DAILY 02/26/16 10/30/18 Unknown History hydrALAZINE [Apresoline] 25 mg PO TID 02/26/16 10/30/18 Unknown History hydroCHLOROthiazide [HCTZ] 25 mg PO QDAY 02/26/16 10/30/18 Unknown History Active Meds: Active Medications Acetaminophen (Tylenol) 650 mg PO Q4H PRN PRN Reason: Pain MILD(1-3)/Fever >100.5/CLAY Enoxaparin Sodium (Lovenox) 30 mg SUB-Q QDAY [facility] Last Admin: 10/30/18 11:18 Dose: 30 mg Documented by: Ceftriaxone Sodium (Rocephin/Ns 1 Gm/50 Ml) 1 gm in 50 mls @ 100 mls/hr IV Q24HR [facility]; Protocol Last Admin: 10/30/18 11:11 Dose: 100 mls/hr Documented by: Ondansetron HCl (Zofran) 4 mg IV Q4H PRN PRN Reason: Nausea And Vomiting Oxycodone/Acetaminophen (Percocet 5/325) 1 tab PO Q6H PRN PRN Reason: Pain, Moderate (4-6) Last Admin: 10/30/18 13:24 Dose: 1 tab Documented by: Sodium Chloride (Sodium Chloride Flush Syringe 10 Ml) 10 ml IV BID [facility] Last Admin: 10/30/18 12:19 Dose: 10 ml Documented by: Sodium Chloride (Sodium Chloride Flush Syringe 10 Ml) 10 ml IV PRN PRN PRN Reason: LINE FLUSH Review of Systems All systems: negative (10 pt ROS performed and negative except for that listed i n HPI) Exam Vital Signs Temp Pulse Resp BP Pulse Ox 97.8 F 80 20 95/50 96 10/29/18 15:16 10/29/18 15:16 10/29/18 15:16 10/29/18 15:16 10/29/18 15:16 Narrative exam: Gen: AAOx3. NAD ENT: no scleral icterus or conjunctival pallor CV: S1, S2+ resp: even and unlabored Abd; soft, NT, ND. no r/r/g Ext; no c/c/e Results - Labs 10/30/18 05:15 10/30/18 06:40 Abnormal lab results 10/30/18 10/30/18 Range/Units 05:15 06:40 Hct 43.4 H (30.3-42.9) % RDW 18.1 H (13.2-15.2) % Lymph % (Auto) 11.2 L (13.4-35.0) % [place] % (Auto) 9.6 H (0.0-7.3) % Lymph # 0.8 L (1.2-5.4) K/mm3 Seg Neutrophils % 74.9 H (40.0-70.0) % BUN 41 H (7-17) mg/dL Creatinine 1.8 H (0.7-1.2) mg/dL Glucose 109 H (65-100) mg/dL CK-MB (CK-2) Rel Index 6.0 H (0-4) Diabetes panel 10/30/18 Range/Units 06:40 Sodium 142 (137-145) mmol/L Potassium 4.8 (3.6-5.0) mmol/L Chloride 102.5 (98-107) mmol/L Carbon Dioxide 24 (22-30) mmol/L BUN 41 H (7-17) mg/dL Creatinine 1.8 H (0.7-1.2) mg/dL Glucose 109 H (65-100) mg/dL Calcium 8.9 (8.4-10.2) mg/dL Calcium panel 10/30/18 Range/Units 06:40 Calcium 8.9 (8.4-10.2) mg/dL Pituitary panel 10/30/18 Range/Units 06:40 Sodium 142 (137-145) mmol/L Potassium 4.8 (3.6-5.0) mmol/L Chloride 102.5 (98-107) mmol/L Carbon Dioxide 24 (22-30) mmol/L BUN 41 H (7-17) mg/dL Creatinine 1.8 H (0.7-1.2) mg/dL Glucose 109 H (65-100) mg/dL Calcium 8.9 (8.4-10.2) mg/dL Adrenal panel 10/30/18 Range/Units 06:40 Sodium 142 (137-145) mmol/L Potassium 4.8 (3.6-5.0) mmol/L Chloride 102.5 (98-107) mmol/L Carbon Dioxide 24 (22-30) mmol/L BUN 41 H (7-17) mg/dL Creatinine 1.8 H (0.7-1.2) mg/dL Glucose 109 H (65-100) mg/dL Calcium 8.9 (8.4-10.2) mg/dL - Imaging CT scan - abdomen: report reviewed, image reviewed CT scan - pelvis: report reviewed, image reviewed US - abdomen: report reviewed, image reviewed Assessment and Plan 83 yo F with right flank pain Patient without signs or symptoms consistent with cholecystitis. She is tolerating a diet without abdominal pain. Flank pain likely related to right pleural effusion and patient recalls a history of similar pain with prior right pleural effusion. Plan: 1. no surgical intervention indicated 2. continue diet 3. management of pleural effusion per 1' service. May benefit from thoracentesis D/W Dr. Nj. Please call with questions.
[2018-10-30] MEDS ORDERED: MILK OF MAGNESIA PO PRN (22:10)
[2018-10-31] MEDS: PERCOCET 5/325 PO PRN ×2 (00:43→06:50)
--- NOTE | 2018-10-31 08:16 | Discharge Summary ---
Providers - Providers Date of Admission: 10/29/18 23:58 Attending physician: MARCELO HELMS MD 10/30/18 15:40 Consult to Physician [CONS] Routine Comment: Consulting Provider: KERRIE LUDWIG Physician Instructions: Reason For Exam: right flank pain, chollithiasis Primary care physician: [facility], Hospitalization Reason for admission: right flank pain, UTI, CKD, right pleural effusion Condition: Stable Pertinent studies: CT abdomen and pelvis Abdominal U/S Hospital course: 83-year-old woman with CHF, chronic right pleural effusion, hypertension, COPD, gout, emergency room complaining of right flank pain 3 weeks, described as sharp, intermittent less than 1 minute, intensity level 6, cannot identify exacerbating factor, no nausea vomiting. patient denied urgency, frequency and dysuria. Status post thoracentesis one month ago. Patient was admitted and found to have UTI and CKD. U/S showed small stone in the GB and general surgery was consulted and recommend no intervention. The cause of the pain was unknown. Patient pleural effusion was stable. patient was hemodynamically stable at the time of discharge. patient was given with antibiotic and pain medicine at the time of discharge. Disposition: DC-01 TO HOME OR SELFCARE Time spent for discharge: 32 minutes - Discharge Diagnoses (1) Acute right flank pain Status: Acute (2) Pleural effusion, right Status: Acute (3) Renal insufficiency Status: Acute (4) UTI (urinary tract infection) Status: Acute Core Measure Documentation - Palliative Care Palliative Care/ Comfort Measures: Not Applicable - Core Measures Any of the following diagnoses?: none Exam - Physical Exam Narrative exam: Not in cardiopulmonary distress. The patient appeared well nourished and normally developed. Vital signs as documented. Head exam is unremarkable. No scleral icterus . Neck is without jugular venous distension, thyromegaly, or carotid bruits. Lungs are clear to auscultation. Cardiac exam reveals regular rate and Rhythm. First and second heart sounds normal. No murmurs, rubs or gallops. Abdominal exam reveals normal bowel sounds, no masses, no organomegaly and no aortic enlargement. Extremities are nonedematous and both femoral and pedal pulses are normal. POPULATION HEALTH MANAGER: Alert and oriented 3. No focal weakness. - Constitutional Vitals: Temp Pulse Resp BP Pulse Ox 97.7 F 75 18 153/61 97 10/31/18 02:47 10/31/18 02:47 10/31/18 02:47 10/31/18 02:47 10/31/18 02:47 Plan Activity: no restrictions Weight Bearing Status: Full Weight Bearing Diet: low salt Follow up with: SUZAN JORDAN MD [Primary Care Provider] - 3-5 Days Prescriptions: Cephalexin [Keflex] 250 mg PO TID #12 capsule oxyCODONE /ACETAMINOPHEN [Percocet 5/325 mg] 1 tab PO Q6H PRN #14 tablet PRN Reason: Pain, Moderate (4-6)
[2018-10-31 08:26] LABS: Calcium 9.4 mg/dL (8.4-10.2)
[2018-10-31 08:32] VITALS: BP 146/65
[2018-10-31] MEDS: SODIUM CHLORIDE FLUSH SYRINGE 10 ML IV SCH (09:17)
[2018-10-31] MEDS: LOVENOX SUB-Q SCH (09:17)
[2018-10-31] MEDS: ROCEPHIN/NS 1 GM/50 ML 1 GM/50 ML BAG IV SCH (09:17)
== END 2018-10-31 11:15 | disposition home or self-care (01) | DRG 690 ==
LOC: ED 15:05 → 2B-ACE 23:58
PROVIDERS: ADMIT Internal Medicine; ATTEND Internal Medicine
DX: N39.0 Urinary tract infection, site not specified (principal); J90 Pleural effusion, not elsewhere classified; I13.0 Hypertensive heart and chronic kidney disease with heart failure and stage 1 through stage 4 chronic kidney disease, or unspecified chronic kidney disease; K80.20 Calculus of gallbladder without cholecystitis without obstruction; J44.9 Chronic obstructive pulmonary disease, unspecified; M10.9 Gout, unspecified; Z95.1 Presence of aortocoronary bypass graft; Z95.0 Presence of cardiac pacemaker; Z95.2 Presence of prosthetic heart valve; Z82.49 Family history of ischemic heart disease and other diseases of the circulatory system; I48.91 Unspecified atrial fibrillation; Z90.710 Acquired absence of both cervix and uterus; R10.9 Unspecified abdominal pain; N18.9 Chronic kidney disease, unspecified; I50.9 Heart failure, unspecified
CPT/HCPCS: 36415; 71045; 74176; 76705; 80048; 80053; 80061; 81001; 82550; 82553; 84484; 85025; 87086; 93005; 93010; 94760; 96365; 96375; 96376; G0378; J0696; J1650; J2270; J2405; J3010